=== PATIENT | female | born 1965 | race Two or more races ===

== ENCOUNTER 2017-02-03 11:25 | Emergency (ER) | payer BC, OTHER ==
--- NOTE | 2017-02-03 11:47 | ER Document Report ---
ED Medical Screen (RME) - General Chief Complaint: Weakness Stated Complaint: LEFT SIDE WEAKNESS Time Seen by Provider: 02/03/17 11:42 Mode of Arrival: Ambulatory Information source: Patient Notes: 51-year-old diabetic female presents with complaints of left-sided sudden weakness arms legs with slurred speech lasting approximately 15 minutes prior to arrival. Patient denies any previous similar episodes I have greeted and performed a rapid initial assessment of this patient. A comprehensive ED assessment and evaluation of the patient, analysis of test results and completion of the medical decision making process will be conducted by additional ED providers. PHYSICAL EXAMINATION: GENERAL: Well-appearing, well-nourished and in no acute distress. HEAD: Atraumatic, normocephalic. EYES: Pupils equal round extraocular movements intact, conjunctiva are normal. ENT: Nares patent NECK: Normal range of motion LUNGS: No respiratory distress Musculoskeletal: Normal range of motion NEUROLOGICAL: Normal speech, normal gait. PSYCH: Normal mood, normal affect. SKIN: Warm, Dry, normal turgor, no rashes or lesions noted. TRAVEL OUTSIDE OF THE [place] IN LAST 30 DAYS: No - Related Data Allergies/Adverse Reactions: codeine Allergy (Verified 02/03/17 11:34) latex Allergy (Verified 02/03/17 11:34) Past Medical History Renal/ Medical History: Denies: Hx Peritoneal Dialysis Physical Exam - Vital signs Vitals: Temp Pulse Resp BP Pulse Ox 98.4 F 93 18 156/81 H 98 02/03/17 11:33 02/03/17 11:33 02/03/17 11:33 02/03/17 11:33 02/03/17 11:33 Course - Vital Signs Vital signs: Temp Pulse Resp BP Pulse Ox 98.4 F 93 18 156/81 H 98 02/03/17 11:33 02/03/17 11:33 02/03/17 11:33 02/03/17 11:33 02/03/17 11:33
--- NOTE | 2017-02-03 12:25 | RADIOLOGY REPORT (SQ) ---
EXAM DESCRIPTION: CHEST SINGLE VIEW COMPLETED DATE/TIME: 02/03/2017 12:15 pm REASON FOR STUDY: sudden left sided weakness with reslution COMPARISON: Chest film 01/19/2007 CT angio chest 01/19/2007 EXAM PARAMETERS: NUMBER OF VIEWS: One view. TECHNIQUE: Single frontal radiographic view of the chest acquired. RADIATION DOSE: NA LIMITATIONS: None. FINDINGS: LUNGS AND PLEURA: No opacities, masses or pneumothorax. No pleural effusion. MEDIASTINUM AND HILAR STRUCTURES: No masses. Contour normal. HEART AND VASCULAR STRUCTURES: Heart normal in size. Normal vasculature. BONES: No acute findings. HARDWARE: None in the chest. OTHER: No other significant finding. IMPRESSION: NO ACUTE RADIOGRAPHIC FINDING IN THE CHEST. TECHNICAL DOCUMENTATION: JOB ID: [id number]
--- NOTE | 2017-02-03 12:27 | RADIOLOGY REPORT (SQ) ---
EXAM DESCRIPTION: CT HEAD WITHOUT COMPLETED DATE/TIME: 02/03/2017 12:17 pm REASON FOR STUDY: sudden left sided weakness with reslution COMPARISON: None. TECHNIQUE: Axial images acquired through the brain without intravenous contrast. Images reviewed wi th bone, brain and subdural windows. Images stored on PACS. All CT scanners at this facility use dose modulation, iterative reconstruction, and/or weight based d osing when appropriate to reduce radiation dose to as low as reasonably achievable (ALARA). [facility]: Dose Right [facility]: CareDose [facility]: Dose Right [facility]: Teradose 4D [facility]: Smart WalkSource RADIATION DOSE: Up-to-date CT equipment and radiation dose reduction techniques were employed. CTDIv ol: 49.0 mGy. DLP: 783 mGy-cm. mGy. LIMITATIONS: None. FINDINGS: VENTRICLES: Normal size and contour. CEREBRUM: No masses. No hemorrhage. No midline shift. No evidence for acute infarction. Normal gra y/white matter differentiation. No areas of low density in the white matter. CEREBELLUM: No masses. No hemorrhage. No alteration of density. No evidence for acute infarction. EXTRAAXIAL SPACES: No fluid collections. No masses. ORBITS AND GLOBE: No intra- or extraconal masses. Normal contour of globe without masses. CALVARIUM: No fracture. PARANASAL SINUSES: No fluid or mucosal thickening. SOFT TISSUES: No mass or hematoma. OTHER: No other significant finding. IMPRESSION: NORMAL BRAIN CT WITHOUT CONTRAST. EVIDENCE OF ACUTE STROKE: NO. COMMENT: Pertinent findings on the imaging study reported as a CRITICAL RESULT to Dr. Chavira at 12:19 on 02/03/2017. Category of Critical Result: CT code stroke Quality ID # [id number]: Final reports with documentation of one or more dose reduction techniques (e.g., Au tomated exposure control, adjustment of the mA and/or kV according to patient size, use of iterative reconstruction technique) TECHNICAL DOCUMENTATION: JOB ID: [id number] [employer]- All Rights Reserved
[2017-02-03 12:43] LABS: PROTHROMBIN TIME 11.8 SEC (11.4-15.4)
[2017-02-03 12:44] LABS: PARTIAL THROMBOPLASTIN TIME 31.7 SEC (23.5-35.8)
[2017-02-03 12:45] LABS: ABSOLUTE EOSINOPHILS # (AUTO) 0.1 10^3/uL (0.0-0.6); ABSOLUTE LYMPHOCYTES (AUTO) 1.6 10^3/uL (0.5-4.7); ABSOLUTE MONOCYTES (AUTO) 0.3 10^3/uL (0.1-1.4); ABSOLUTE NEUT (AUTO) 5.1 10^3/uL (1.7-8.2); BASOPHILS % (AUTO) 0.6 % (0-2); EOSINOPHILS % (AUTO) 1.7 % (0-6); HEMATOCRIT 38.1 % (36.0-47.0); HGB HCT DIFFERENCE 0.9; LYMPHOCYTES % (AUTO) 22.3 % (13-45); MEAN CORPUSCULAR HEMOGLOBIN 29.7 pg (27.0-33.4); MEAN CORPUSCULAR HGB CONC 34.2 g/dL (32.0-36.0); MEAN CORPUSCULAR VOLUME 87 fl (80-97); MONOCYTES % (AUTO) 4.4 % (3-13); RED BLOOD COUNT 4.38 10^6/uL (3.72-5.28); RED CELL DISTRIBUTION WIDTH 12.8 % (11.5-14.0); WHITE BLOOD COUNT 7.2 10^3/uL (4.0-10.5)
[2017-02-03 12:59] LABS: ALANINE AMINOTRANSFERASE 53 U/L (9-52); ALBUMIN 4.6 g/dL (3.5-5.0); ALKALINE PHOSPHATASE 69 U/L (38-126); ANION GAP 16 (5-19); ASPARTATE AMINO TRANSFERASE 40 U/L (14-36); BILIRUBIN,DIRECT 0.4 mg/dL (0.0-0.4); BILIRUBIN,TOTAL 0.6 mg/dL (0.2-1.3); BLOOD UREA NITROGEN 10 mg/dL (7-20); CALCIUM 10.2 mg/dL (8.4-10.2); CARBON DIOXIDE 22 mmol/L (22-30); CHLORIDE 103 mmol/L (98-107); CREATINE KINASE 71 U/L (30-135); CREATININE RESULT 0.57 mg/dL (0.52-1.25); GLUCOSE 217 mg/dL (75-110); POTASSIUM 4.5 mmol/L (3.6-5.0); SODIUM 140.8 mmol/L (137-145)
[2017-02-03 13:11] LABS: CREATINE KINASE MB 0.43 ng/mL (<4.55)
[2017-02-03 13:14] LABS: TROPONIN I < 0.012 ng/mL
--- NOTE | 2017-02-03 14:35 | ER Document Report ---
ED Dizziness/Weakness - General Chief Complaint: Weakness Stated Complaint: LEFT SIDE WEAKNESS Time Seen by Provider: 02/03/17 11:42 Mode of Arrival: Ambulatory Information source: Patient TRAVEL OUTSIDE OF THE [place] IN LAST 30 DAYS: No - HPI Patient complains to provider of: Weakness Onset: This morning Onset/Duration: Sudden Quality of pain: No pain Severity: Moderate - WAS STILL ABLE TO WALK & DRESS SELF Associated symptoms: Confused - SLIGHTLY (THIS HAS HAPPENED BEFORE, IS RATHER COMMON, SHE SAYS), Loss of strength. denies: Nausea, Vertigo Baseline gait: Walks w/o assistance - Related Data Allergies/Adverse Reactions: codeine Allergy (Verified 02/03/17 11:34) latex Allergy (Verified 02/03/17 11:34) Past Medical History - General Information source: Patient - Social History Smoking Status: Never Smoker Chew tobacco use (# tins/day): No Frequency of alcohol use: None Drug Abuse: None Lives with: Family Family History: Reviewed & Not Pertinent Patient has suicidal ideation: No Patient has homicidal ideation: No - Past Medical History Cardiac Medical History: Reports: None Pulmonary Medical History: Reports: None EENT Medical History: Reports: None Neurological Medical History: Reports: Other - NEUROPATHY, MILD.. Denies: Hx Cerebrovascular Accident, Hx Migraine, Hx Seizures Endocrine Medical History: Reports: Hx Diabetes Mellitus Type 2 Renal/ Medical History: Reports: None. Denies: Hx Peritoneal Dialysis Malignancy Medical History: Reports: Hx Breast Cancer - LUMPECTOMY, RADIATION Tx Musculoskeltal Medical History: Reports None Psychiatric Medical History: Reports: None Past Surgical History: Reports: Hx Lumpectomy Review of Systems - Review of Systems Constitutional: See HPI EENT: No symptoms reported Cardiovascular: No symptoms reported Respiratory: No symptoms reported Gastrointestinal: No symptoms reported Genitourinary: No symptoms reported Female Genitourinary: No symptoms reported Musculoskeletal: See HPI Skin: No symptoms reported Neurological/Psychological: See HPI Physical Exam - Vital signs Vitals: Temp Pulse Resp BP Pulse Ox 98.4 F 93 18 156/81 H 98 02/03/17 11:33 02/03/17 11:33 02/03/17 11:33 02/03/17 11:33 02/03/17 11:33 Interpretation: Normal - General General appearance: Appears well, Alert In distress: None - HEENT Head: Normocephalic Eyes: Normal Conjunctiva: Normal Ears: Normal External canal: Normal Tympanic membrane: Normal Nasal: Normal Mouth/Lips: Normal Mucous membranes: Normal Pharynx: Normal Neck: Normal, Supple - Respiratory Respiratory status: No respiratory distress Breath sounds: Normal - Cardiovascular Rhythm: Regular Heart sounds: Normal auscultation Murmur: No - Abdominal Inspection: Normal Distension: No distension Bowel sounds: Normal - Back Back: Normal - Extremities General upper extremity: Normal inspection General lower extremity: No: Normal inspection - L. FOOT (SEE BELOW) Foot: Other - SMALL VENOUS VARICOSITY ON DORSUM, 2mm DIAMETER, NO THROMBUS - Neurological Neuro grossly intact: Yes Cognition: Normal Orientation: AAOx4 Fifi Coma Scale Eye Opening: Spontaneous Fifi Coma Scale Verbal: Oriented Fifi Coma Scale Motor: Obeys Commands Fifi Coma Scale Total: 15 Speech: Normal Cranial nerves: Normal. No: Facial palsy, Gaze palsy, Tongue deviation Cerebellar coordination: Normal Additional motor exam normals: Equal uniform designer Sensory: Normal - Psychological Associated symptoms: Normal affect, Normal mood - Skin Skin Temperature: Warm Skin Moisture: Dry Skin Color: Normal Skin Turgor: Elastic Course - Vital Signs Vital signs: Temp Pulse Resp BP Pulse Ox 98.4 F 90 18 132/99 H 99 02/03/17 11:33 02/03/17 12:41 02/03/17 13:01 02/03/17 13:01 02/03/17 13:01 - Laboratory Result Diagrams: 02/03/17 12:28 02/03/17 12:28 Laboratory results interpreted by me: 02/03/17 12:28 Glucose 217 H AST 40 H ALT 53 H Discharge - Discharge Clinical Impression: Weakness of left side of body, Superficial varicosities Diabetes mellitus type II, controlled Qualifiers: Diabetes mellitus complication status: with neurologic complications Diabetes mellitus complication detail: with unspecified neuropathy Diabetes mellitus director long term care insulin use: without skilled nursing use Qualified Code(s): E11.40 - Type 2 diabetes mellitus with diabetic neuropathy, unspecified Condition: Stable Disposition: HOME, SELF-CARE Instructions: Neuropathy ([facility]), Weakness ([facility]) Additional Instructions: CONTINUE PRESENT MEDS AND DIABETIC DIET. FOLLOW UP WITH YOUR PRIMARY CARE PROVIDER, CALL SUNDAY FOR APPOINTMENT. RETURN TO E.R. IF YOU GET WORSE, ANY TIME. Referrals: ELHAM PIERRE PA-C [Primary Care Provider] - Follow up in 3-5 days
[2017-02-03 15:25] VITALS: BP 144/83
--- NOTE | 2017-02-03 17:00 | EKG REPORT ---
SEVERITY:- NORMAL ECG - SINUS RHYTHM : Confirmed by: Roni Edgar MD 03-Feb-2017 17:00:00
== END 2017-02-03 15:25 | disposition home or self-care (01) ==
LOC: ER 11:25
DX: E11.40 Type 2 diabetes mellitus with diabetic neuropathy, unspecified (principal); I83.92 Asymptomatic varicose veins of left lower extremity; R53.1 Weakness
CPT/HCPCS: 36415; 70450; 71010; 80053; 82550; 82553; 84484; 85025; 85610; 85730; 93005; 93010; 99285

== ENCOUNTER 2017-05-12 00:17 | Emergency (ER) | payer BC ==
--- NOTE | 2017-05-12 00:49 | RADIOLOGY REPORT (SQ) ---
EXAM DESCRIPTION: CT HEAD WITHOUT CLINICAL HISTORY: Stroke like sx COMPARISON: 02/03/2017 TECHNIQUE: Axial CT of the head obtained from the skull apex to the skull base without contrast. FINDINGS: No acute intracranial hemorrhage identified. No mass, mass effect, shift of the midline, abnormal extra-axial fluid collection or CT evidence of acute ischemic change identified. The ventricular system is unremarkable. No acute abnormalities of the supratentorial white matter, basal ganglia, cerebellum, or brainstem. The visualized paranasal sinuses and the mastoid air cells are well aerated. No skull fracture identified. Visualized orbits and globes are unremarkable. DLP: 1162.97 mGy-cm IMPRESSION: 1. No acute intracranial abnormality identified. This exam was performed according to our departmental dose-optimization program, which includes automated exposure control, adjustment of the mA and/or kV according to patient size and/or use of iterative reconstruction technique.
[2017-05-12] MEDS ORDERED: NORMAL SALINE 1000 ML 1,000 ML IV ONE (00:52)
[2017-05-12] MEDS ORDERED: HALOPERIDOL LACTATE INJ 5 MG/1 ML VIAL IV ONE (00:52)
--- NOTE | 2017-05-12 03:19 | ER Document Report ---
ED General - General Chief Complaint: Numbness Stated Complaint: STROKE LIKE SYMPTOMS Time Seen by Provider: 05/12/17 00:51 Notes: Patient is a 51-year-old female with past medical history of non-insulin- dependent diabetes who presents with concerns of body heaviness and numbness over her entire body from her neck down worse on the left side but present on both sides. She states that the symptoms are intermittent. Symptoms started earlier today and have occurred on several occasions since that time. Nothing improves or worsens her symptoms. She denies a history of similar symptoms in the past although states that she was seen in the emergency department several months ago for left-sided numbness. She is scheduled to follow-up with a neurologist after being referred by her PERSONNEL CLERKS SUPERVISOR regarding some of these complaints. She states that she is "very stressed out" currently and thinks this may have something to do her symptoms. She also reports that she has had a dull, aching headache today. Nothing improves or worsens her symptoms. She denies any prior history of strokes, seizures, demyelinating conditions, or cardiac history. She denies any fever, neck pain, altered mental status, or focal weakness. No difficulty with ambulation. TRAVEL OUTSIDE OF THE [place] IN LAST 30 DAYS: No - Related Data Allergies/Adverse Reactions: codeine Allergy (Verified 02/03/17 11:34) latex Allergy (Verified 02/03/17 11:34) Past Medical History - General Information source: Patient - Social History Smoking Status: Never Smoker Frequency of alcohol use: None Drug Abuse: None Lives with: Family Family History: Reviewed & Not Pertinent Patient has suicidal ideation: No Patient has homicidal ideation: No Neurological Medical History: Denies: Hx Cerebrovascular Accident, Hx Migraine, Hx Seizures Endocrine Medical History: Reports: Hx Diabetes Mellitus Type 2 Renal/ Medical History: Denies: Hx Peritoneal Dialysis Malignancy Medical History: Reports: Hx Breast Cancer - LUMPECTOMY, RADIATION Tx Past Surgical History: Reports: Hx Breast Surgery - lumpectomy R breast, Hx Hysterectomy, Hx Lumpectomy Review of Systems - Review of Systems Notes: Constitutional: Negative for fever. HENT: Negative for sore throat. Eyes: Negative for visual changes. Cardiovascular: Negative for chest pain. Respiratory: Negative for shortness of breath. Gastrointestinal: Negative for abdominal pain, vomiting or diarrhea. Genitourinary: Negative for dysuria. Musculoskeletal: Negative for back pain. Skin: Negative for rash. Neurological: Positive for total body numbness from the neck down 10 point ROS negative except as marked above and in HPI. Physical Exam - Vital signs Vitals: Pulse Resp BP Pulse Ox 108 H 17 148/89 H 97 05/12/17 00:23 05/12/17 00:23 05/12/17 00:23 05/12/17 00:23 Interpretation: Tachycardic Notes: PHYSICAL EXAMINATION: GENERAL: Well-appearing, well-nourished and in no acute distress. HEAD: Atraumatic, normocephalic. EYES: Pupils equal round and reactive to light, extraocular movements intact, sclera anicteric, conjunctiva are normal. ENT: nares patent, oropharynx clear without exudates. Moist mucous membranes. NECK: Normal range of motion, supple without lymphadenopathy LUNGS: Breath sounds clear to auscultation bilaterally and equal. No wheezes rales or rhonchi. HEART: Regular rate and rhythm without murmurs ABDOMEN: Soft, nontender, normoactive bowel sounds. No guarding, no rebound. No masses appreciated. EXTREMITIES: Normal range of motion, no pitting or edema. No cyanosis. NEUROLOGICAL: Face symmetric. Tongue protrudes midline. Extraocular motions intact. Pupils are 2 mm and equally reactive. Normal speech, normal gait. 5 out of 5 strength in both the distal and proximal upper and lower extremities bilaterally. Sensation is grossly intact throughout. Finger to nose testing normal. Pronator drift normal. PSYCH: Seems moderately anxious SKIN: Warm, Dry, normal turgor, no rashes or lesions noted. Course - Re-evaluation Re-evalutation: 05/12/17 03:14 Patient presents with multiple vague complaints that did not appear to be concerning for any acute life-threatening pathology. Vitals are within normal limits at triage and at time of discharge. Physical examination is unremarkable. Patient has tolerated oral intake without difficulty. Patient was not noted to be in distress at any point during their ER visit. At this time, based on the reassuring evaluation, I do not suspect an acute OK, pulmonary embolus, aortic dissection, acute intra-abdominal pathology, stroke, or sepsis. Patient reported that she felt that she was having stroke-like symptoms that she had "heaviness and numbness" over her entire body from her neck down and feeling like she could not swallow. Patient was noted to be in no distress whatsoever, swallowing without difficulty. A full stroke screen is negative. I suspect that some of patient's symptoms may be psychogenic in origin and have encouraged her to follow-up with neurology as an outpatient for further evaluation. Will discharge with return precautions and follow-up recommendations. Verbal discharge instructions given a the bedside and opportunity for questions given. Medication warnings reviewed. Patient is in agreement with this plan and has verbalized understanding of return precautions and the need for primary care follow-up in the next 24-72 hours. - Vital Signs Vital signs: Temp Pulse Resp BP Pulse Ox 97.3 F 108 H 15 137/70 H 98 05/12/17 02:11 05/12/17 00:27 05/12/17 02:11 05/12/17 02:11 05/12/17 02:11 - Diagnostic Test Radiology reviewed: Image reviewed, Reports reviewed Radiology results interpreted by me: 05/12/17 03:15 CT head: No acute intracranial bleed Discharge - Discharge Clinical Impression: Dysphasia, Numbness Condition: Good Disposition: HOME, SELF-CARE Additional Instructions: Please return to the emergency room immediately if you experience any concerning symptoms including high fevers, severe headache, chest pain, difficulty breathing, abdominal pain, slurred speech, numbness or weakness in your arms or legs, or any other symptom that concerns you. Please follow-up with your scheduled neurology appointment. Return for any additional concerns you may have. Referrals: HERNAN WOODY MD [ACTIVE STAFF] - Follow up as needed
[2017-05-12 03:26] VITALS: BP 138/75
--- NOTE | 2017-05-12 12:16 | EKG REPORT ---
SEVERITY:- NORMAL ECG - SINUS RHYTHM : Confirmed by: Payal Etienne MD 12-May-2017 12:15:28
== END 2017-05-12 03:37 | disposition home or self-care (01) ==
LOC: ER 00:17
DX: R20.0 Anesthesia of skin (principal); R47.02 Dysphasia; R51 Headache; R00.0 Tachycardia, unspecified; E11.9 Type 2 diabetes mellitus without complications; Z88.5 Allergy status to narcotic agent; Z91.040 Latex allergy status; Z85.3 Personal history of malignant neoplasm of breast; Z92.3 Personal history of irradiation
CPT/HCPCS: 93005; 99284; 96361; 96374; 70450; 93010; J1630; J7030

== ENCOUNTER 2017-05-21 22:41 | Emergency (ER) | payer BC ==
--- NOTE | 2017-05-21 23:55 | ER Document Report ---
ED General - General Chief Complaint: Neck Pain < 24hrs old Stated Complaint: NECK PAIN Time Seen by Provider: 05/21/17 23:39 Notes: Patient is a 51-year-old female that comes emergency department for chief complaint of pain in the left side of her neck, she also states that her blood sugar felt like it was dropping so she took glucose pills, she felt like her blood pressure then elevated, she then had several episodes of diarrhea and urinated a few times. She denies chest pain, shortness of breath, she states that other than pain in the left side of her neck she feels fine. She states she has had this left sided neck pain intermittently for a few months. She denies injury, fever, headache. Past medical history of 2 diabetes, on metformin, denies smoking, denies any other medications, denies cardiac history. She has had a hysterectomy. TRAVEL OUTSIDE OF THE [place] IN LAST 30 DAYS: No - Related Data Allergies/Adverse Reactions: codeine Allergy (Verified 02/03/17 11:34) latex Allergy (Verified 02/03/17 11:34) Past Medical History - General Information source: Patient - Social History Smoking Status: Never Smoker Frequency of alcohol use: None Drug Abuse: None Lives with: Family Family History: Reviewed & Not Pertinent - Medical History Medical History: Negative Neurological Medical History: Denies: Hx Cerebrovascular Accident, Hx Migraine, Hx Seizures Endocrine Medical History: Reports: Hx Diabetes Mellitus Type 2 Renal/ Medical History: Denies: Hx Peritoneal Dialysis Malignancy Medical History: Reports: Hx Breast Cancer - LUMPECTOMY, RADIATION Tx Past Surgical History: Reports: Hx Breast Surgery - lumpectomy R breast, Hx Hysterectomy, Hx Lumpectomy Review of Systems - Review of Systems Constitutional: No symptoms reported EENT: See HPI Cardiovascular: See HPI Respiratory: No symptoms reported Gastrointestinal: No symptoms reported Genitourinary: No symptoms reported Female Genitourinary: No symptoms reported Musculoskeletal: See HPI Skin: No symptoms reported Hematologic/Lymphatic: No symptoms reported Neurological/Psychological: No symptoms reported Physical Exam - Vital signs Vitals: Temp Pulse Resp BP Pulse Ox 97.7 F 121 H 18 148/82 H 98 05/21/17 22:59 05/21/17 22:59 05/21/17 22:59 05/21/17 22:59 05/21/17 22:59 Interpretation: Normal - General General appearance: Alert, Anxious - Patient wide-eyed, talking rapidly In distress: None - HEENT Head: Normocephalic, Atraumatic Eyes: Normal Conjunctiva: Normal Extraocular movements intact: Yes Eyelashes: Normal Pupils: PERRL Mouth/Lips: Normal Mucous membranes: Normal Pharynx: Normal Neck: Other - There is a specific area of tenderness over the left anterior cervical chain consistent with a small lymph node, no induration, fluctuance, erythema, normal range of motion of the neck, no nuchal rigidity. - Respiratory Respiratory status: No respiratory distress Chest status: Nontender Breath sounds: Normal. No: Decreased air movement, Wheezing Chest palpation: Normal - Cardiovascular Rhythm: Regular, Extrasystoles, Tachycardia Heart sounds: Normal auscultation, S1 appreciated, S2 appreciated Murmur: No - Abdominal Inspection: Normal Distension: No distension Bowel sounds: Normal Tenderness: Nontender. No: Tender, Guarding - Back Back: Normal, Nontender. No: Tender - Extremities General upper extremity: Normal inspection, Nontender, Normal color, Normal ROM , Normal temperature General lower extremity: Normal inspection, Nontender, Normal color, Normal ROM , Normal temperature, Normal weight bearing. No: Vandana's sign - Neurological Neuro grossly intact: Yes Cognition: Normal Orientation: AAOx4 Fifi Coma Scale Eye Opening: Spontaneous Fifi Coma Scale Verbal: Oriented Fifi Coma Scale Motor: Obeys Commands Fifi Coma Scale Total: 15 Speech: Normal Motor strength normal: LUE, RUE, LLE, RLE Sensory: Normal - Psychological Associated symptoms: Normal affect, Normal mood - Skin Skin Temperature: Warm Skin Moisture: Dry Skin Color: Normal Course - Re-evaluation Re-evalutation: Patient initially appeared anxious, talking about a variety of things instead of just her symptoms. Eventually she became more calm. She has a small area of tenderness in her left anterior cervical chain, she does not have any decreased range of motion, no nuchal rigidity, no fever, no headache. She has poor dentition and she admits that she gets frequent dental infections and is having dental procedures. I suspect this is a lymph node that is swollen secondary to this. Does not appear to be ACS symptom, she has no other symptoms suggesting ACS, her EKG does not show any ischemic changes, troponin is not elevated, chest x-ray unremarkable, CBC, chemistry unremarkable. Patient is having extra beats along with her sinus rhythm although these are not PVCs. Appears to be sinus arrhythmia. Magnesium is slightly low, offered to supplement, offered to give IV fluids, patient declined both. She was orally rehydrating in the room. No evidence of acidosis. Patient is asking for anti-inflammatories along with magnesium and is asking to leave. She does agree to follow-up closely with her primary care for additional monitoring, I discussed this in detail, I discussed return precautions, patient states gratefulness and understanding. - Vital Signs Vital signs: Temp Pulse Resp BP Pulse Ox 98.3 F 84 16 147/84 H 98 05/22/17 03:00 05/22/17 03:00 05/22/17 03:00 05/22/17 03:00 05/22/17 03:00 - Laboratory Result Diagrams: 05/22/17 00:05 05/22/17 00:05 Laboratory results interpreted by me: 05/22/17 05/22/17 05/22/17 00:05 00:05 00:05 WBC 10.6 H Seg Neutrophils % 81.8 H Absolute Neutrophils 8.7 H Glucose 219 H Calcium 10.9 H Magnesium 1.4 L ALT 56 H Albumin 5.3 H Urine Glucose (UA) Urine Ketones 05/22/17 01:20 WBC Seg Neutrophils % Absolute Neutrophils Glucose Calcium Magnesium ALT Albumin Urine Glucose (UA) 50 H Urine Ketones TRACE H Discharge - Discharge Clinical Impression: Palpitations, Neck pain Condition: Stable Disposition: HOME, SELF-CARE Additional Instructions: Your workup shows low magnesium but otherwise shows no concerning findings. Your monitoring shows extra beats consistent with your sensation of palpitations , I recommend taking the magnesium supplement as prescribed, perform a close follow-up with your provider for additional treatment, monitoring, and potential cardiac referral. Your neck exam is suggestive of a swollen lymph node, probably related to your dental condition. This is not certain or specific. This should resolve with time. Follow-up with your dentist for additional management to reduce painful symptoms in the lymph node. Return if you develop any concerning symptoms including shortness of breath, chest pain, passing out, fever, or any other concerning symptoms. Prescriptions: Ibuprofen [Motrin 600 mg Tablet] 600 mg PO Q6HP PRN #24 tablet PRN Reason: Magnesium Oxide 250 mg PO DAILY #30 tablet Referrals: ELHAM PIERRE PA-C [Primary Care Provider] - Follow up in 3-5 days
[2017-05-22 00:19] LABS: ABSOLUTE EOSINOPHILS # (AUTO) 0.1 10^3/uL (0.0-0.6); ABSOLUTE LYMPHOCYTES (AUTO) 1.5 10^3/uL (0.5-4.7); ABSOLUTE MONOCYTES (AUTO) 0.3 10^3/uL (0.1-1.4); ABSOLUTE NEUT (AUTO) 8.7 10^3/uL (1.7-8.2); BASOPHILS % (AUTO) 0.4 % (0-2); EOSINOPHILS % (AUTO) 0.8 % (0-6); HEMOGLOBIN 13.6 g/dL (12.0-15.5); LYMPHOCYTES % (AUTO) 13.9 % (13-45); MEAN CORPUSCULAR HEMOGLOBIN 29.5 pg (27.0-33.4); MEAN CORPUSCULAR HGB CONC 33.9 g/dL (32.0-36.0); MEAN CORPUSCULAR VOLUME 87 fl (80-97); MONOCYTES % (AUTO) 3.1 % (3-13); PLATELET COUNT 279 10^3/uL (150-450); RED CELL DISTRIBUTION WIDTH 12.6 % (11.5-14.0); SEGMENTED NEUTROPHILS % (AUTO) 81.8 % (42-78); TOTAL CELLS COUNTED % (AUTO) 100 %; WHITE BLOOD COUNT 10.6 10^3/uL (4.0-10.5)
[2017-05-22 00:35] LABS: ALANINE AMINOTRANSFERASE 56 U/L (9-52); ALBUMIN 5.3 g/dL (3.5-5.0); ALKALINE PHOSPHATASE 88 U/L (38-126); ANION GAP 17 (5-19); ASPARTATE AMINO TRANSFERASE 32 U/L (14-36); BILIRUBIN,DIRECT 0.2 mg/dL (0.0-0.4); BILIRUBIN,TOTAL 0.3 mg/dL (0.2-1.3); BLOOD UREA NITROGEN 17 mg/dL (7-20); CALCIUM 10.9 mg/dL (8.4-10.2); CARBON DIOXIDE 23 mmol/L (22-30); CHLORIDE 99 mmol/L (98-107); CREATINE KINASE 70 U/L (30-135); GLUCOSE 219 mg/dL (75-110); POTASSIUM 4.5 mmol/L (3.6-5.0); SODIUM 138.7 mmol/L (137-145); TOTAL PROTEIN 7.7 g/dL (6.3-8.2)
[2017-05-22 02:01] LABS: APPEARANCE,URINE CLEAR; BILIRUBIN,URINE NEGATIVE (NEGATIVE); COLOR,URINE COLORLESS; GLUCOSE, URINE 50 mg/dL (NEGATIVE); KETONES,URINE TRACE mg/dL (NEGATIVE); LEUKOCYTE ESTERASE,URINE NEGATIVE (NEGATIVE); NITRITE,URINE NEGATIVE (NEGATIVE); PROTEIN,URINE NEGATIVE (NEGATIVE); URINE SPECIFIC GRAVITY 1.004; UROBILINOGEN,URINE NEGATIVE mg/dL (<2.0)
[2017-05-22] MEDS ORDERED: ACETAMINOPHEN 325 MG TABLET PO ONE (02:43)
[2017-05-22 03:39] VITALS: BP 147/84
--- NOTE | 2017-05-22 06:39 | EKG REPORT ---
SEVERITY:- OTHERWISE NORMAL ECG - SINUS TACHYCARDIA : Confirmed by: Roni Edgar MD 22-May-2017 06:38:43
--- NOTE | 2017-05-22 08:15 | RADIOLOGY REPORT (SQ) ---
EXAM DESCRIPTION: CHEST SINGLE VIEW COMPLETED DATE/TIME: 05/22/2017 12:16 am REASON FOR STUDY: left sided neck pain, rule out ACS COMPARISON: AP chest 02/03/2017 EXAM PARAMETERS: NUMBER OF VIEWS: One view. TECHNIQUE: Single frontal radiographic view of the chest acquired. RADIATION DOSE: NA LIMITATIONS: None. FINDINGS: LUNGS AND PLEURA: No opacities, masses or pneumothorax. No pleural effusion. MEDIASTINUM AND HILAR STRUCTURES: No masses. Contour normal. HEART AND VASCULAR STRUCTURES: Heart normal in size. Normal vasculature. BONES: No acute findings. HARDWARE: None in the chest. OTHER: No other significant finding. IMPRESSION: NO ACUTE RADIOGRAPHIC FINDING IN THE CHEST. TECHNICAL DOCUMENTATION: JOB ID: [id number] [employer]- All Rights Reserved
== END 2017-05-22 03:10 | disposition home or self-care (01) ==
LOC: ER 22:41
DX: M54.2 Cervicalgia (principal); R00.2 Palpitations; Z88.6 Allergy status to analgesic agent; Z91.040 Latex allergy status; E11.9 Type 2 diabetes mellitus without complications; Z79.84 Long term (current) use of oral hypoglycemic drugs; Z90.710 Acquired absence of both cervix and uterus
CPT/HCPCS: 36415; 71045; 80053; 81001; 82550; 83735; 84443; 84484; 85025; 93005; 93010; 99284

== ENCOUNTER 2019-03-15 12:06 | Emergency (ER) | payer BC ==
--- NOTE | 2019-03-15 12:28 | ER Document Report ---
ED Medical Screen (RME) - General Mode of Arrival: Ambulatory Information source: Patient TRAVEL OUTSIDE OF THE [place] IN LAST 30 DAYS: No <AVINASH JEREZ - Last Filed: 03/15/19 12:24> <ADRIANA CALHOUN - Last Filed: 03/15/19 17:15> - General Chief Complaint: Dizziness Stated Complaint: DIZZINESS Time Seen by Provider: 03/15/19 12:24 Primary Care Provider: ELHAM PIERRE PA-C [NO LOCAL MD] - Follow up as needed Notes: 53-year-old female presented to ED for complaint of dizziness since Sunday night . She states she went to well over and she got dizzy Sunday night. She states is been coming and going since then. She states is worse if she rolls to her left and when she rolls to her right. She states that had been only bothering her in the bed when she was trying to sleep but yesterday it started all day and she is having pain in the left side of her neck but she thinks that could be from stress. He states she took some meclizine last night at 1130. She states the meclizine made it much worse. She has had something similar but it was so mild that she does not even realize it was the same. She states she thought it might be low blood sugars she states she does have diabetes but does not use insulin. She states she is on metformin and a new medication that she has not picked up yet. I have greeted and performed a rapid initial assessment of this patient. A comprehensive ED assessment and evaluation of the patient, analysis of test results and completion of medical decision making process will be conducted by an additional ED providers. (AVINASH JEREZ) - Related Data Allergies/Adverse Reactions: codeine Allergy (Verified 03/15/19 12:22) latex Allergy (Verified 03/15/19 12:22) Past Medical History Neurological Medical History: Denies: Hx Cerebrovascular Accident, Hx Migraine, Hx Seizures Endocrine Medical History: Reports: Hx Diabetes Mellitus Type 2 Renal/ Medical History: Denies: Hx Peritoneal Dialysis Malignancy Medical History: Reports: Hx Breast Cancer - LUMPECTOMY, RADIATION Tx Past Surgical History: Reports: Hx Breast Surgery - lumpectomy R breast, Hx Hysterectomy, Hx Lumpectomy <AVINASH JEREZ - Last Filed: 03/15/19 12:24> Physical Exam - Vital signs Vitals: Temp Pulse Resp BP Pulse Ox 98.1 F 102 H 18 184/85 H 100 03/15/19 12:08 03/15/19 12:08 03/15/19 12:08 03/15/19 12:08 03/15/19 12:08 Course - Laboratory Result Diagrams: 03/15/19 13:00 03/15/19 13:00 <ADRIANA CALHOUN - Last Filed: 03/15/19 17:15> - Vital Signs Vital signs: Temp Pulse Resp BP Pulse Ox 98.1 F 102 H 18 184/85 H 100 03/15/19 12:08 03/15/19 12:08 03/15/19 12:08 03/15/19 12:08 03/15/19 12:08 - Laboratory Laboratory results interpreted by me: 03/15/19 03/15/19 12:39 13:00 Glucose 144 H Urine Glucose (UA) 50 H Ur Leukocyte Esterase SMALL H Doctor's Discharge <AVINASH JEREZ - Last Filed: 03/15/19 12:24> <ADRIANA CALHOUN - Last Filed: 03/15/19 17:15> - Discharge Clinical Impression: Peripheral vertigo Qualifiers: Laterality: right Qualified Code(s): H81.391 - Other peripheral vertigo, right ear Condition: Good Disposition: HOME, SELF-CARE Instructions: Meclizine ([facility]), Vertigo ([facility]) Prescriptions: Meclizine HCl [Antivert 25 mg Tablet] 25 mg PO TID PRN 7 Days #21 tablet PRN Reason: As needed for vertigo Referrals: ELHAM PIERRE PA-C [NO LOCAL MD] - Follow up as needed
[2019-03-15 13:18] LABS: ABSOLUTE EOSINOPHILS # (AUTO) 0.1 10^3/uL (0.0-0.6); ABSOLUTE LYMPHOCYTES (AUTO) 1.9 10^3/uL (0.5-4.7); ABSOLUTE MONOCYTES (AUTO) 0.4 10^3/uL (0.1-1.4); ABSOLUTE NEUT (AUTO) 4.7 10^3/uL (1.7-8.2); BASOPHILS % (AUTO) 0.5 % (0-2); EOSINOPHILS % (AUTO) 1.2 % (0-6); HEMATOCRIT 40.9 % (36.0-47.0); HEMOGLOBIN 14.3 g/dL (12.0-15.5); MEAN CORPUSCULAR HEMOGLOBIN 30.6 pg (27.0-33.4); MEAN CORPUSCULAR VOLUME 87 fl (80-97); MONOCYTES % (AUTO) 5.7 % (3-13); PLATELET COUNT 264 10^3/uL (150-450); RED BLOOD COUNT 4.68 10^6/uL (3.72-5.28); RED CELL DISTRIBUTION WIDTH 12.8 % (11.5-14.0); SEGMENTED NEUTROPHILS % (AUTO) 65.6 % (42-78); TOTAL CELLS COUNTED % (AUTO) 100 %; WHITE BLOOD COUNT 7.2 10^3/uL (4.0-10.5)
[2019-03-15 13:36] LABS: APPEARANCE,URINE SLIGHTLY-CLOUDY; BILIRUBIN,URINE NEGATIVE (NEGATIVE); COLOR,URINE STRAW; GLUCOSE, URINE 50 mg/dL (NEGATIVE); KETONES,URINE NEGATIVE (NEGATIVE); LEUKOCYTE ESTERASE,URINE SMALL (NEGATIVE); NITRITE,URINE NEGATIVE (NEGATIVE); PROTEIN,URINE NEGATIVE (NEGATIVE); URINE SPECIFIC GRAVITY 1.011; UROBILINOGEN,URINE NEGATIVE mg/dL (<2.0)
[2019-03-15 13:37] LABS: ALBUMIN 4.9 g/dL (3.5-5.0); ALKALINE PHOSPHATASE 80 U/L (38-126); ANION GAP 14 (5-19); ASPARTATE AMINO TRANSFERASE 27 U/L (14-36); BILIRUBIN,DIRECT 0.2 mg/dL (0.0-0.4); BILIRUBIN,TOTAL 0.5 mg/dL (0.2-1.3); BLOOD UREA NITROGEN 13 mg/dL (7-20); CALCIUM 10.2 mg/dL (8.4-10.2); CARBON DIOXIDE 23 mmol/L (22-30); CHLORIDE 105 mmol/L (98-107); GLUCOSE 144 mg/dL (75-110); POTASSIUM 4.3 mmol/L (3.6-5.0); TOTAL PROTEIN 7.6 g/dL (6.3-8.2)
[2019-03-15 13:38] LABS: ADD MANUAL MICROSCOPIC YES
--- NOTE | 2019-03-15 14:25 | ER Document Report ---
ED General - General Chief Complaint: Dizziness Stated Complaint: DIZZINESS Time Seen by Provider: 03/15/19 12:24 Primary Care Provider: ELHAM PIERRE PA-C [NO LOCAL MD] - Follow up as needed Mode of Arrival: Ambulatory TRAVEL OUTSIDE OF THE [place] IN LAST 30 DAYS: No - Related Data Allergies/Adverse Reactions: codeine Allergy (Verified 03/15/19 12:22) latex Allergy (Verified 03/15/19 12:22) Home Medications: metformin. tylenol. claritin Past Medical History - General Information source: Patient - Social History Smoking Status: Never Smoker Chew tobacco use (# tins/day): No Frequency of alcohol use: None Drug Abuse: None Family History: Reviewed & Not Pertinent Patient has suicidal ideation: No Patient has homicidal ideation: No Neurological Medical History: Denies: Hx Cerebrovascular Accident, Hx Migraine, Hx Seizures Endocrine Medical History: Reports: Hx Diabetes Mellitus Type 2 Renal/ Medical History: Denies: Hx Peritoneal Dialysis Malignancy Medical History: Reports: Hx Breast Cancer - LUMPECTOMY, RADIATION Tx Past Surgical History: Reports: Hx Breast Surgery - lumpectomy R breast, Hx Hysterectomy, Hx Lumpectomy Physical Exam - Vital signs Vitals: Temp Pulse Resp BP Pulse Ox 98.1 F 102 H 18 184/85 H 100 03/15/19 12:08 03/15/19 12:08 03/15/19 12:08 03/15/19 12:08 03/15/19 12:08 Course - Vital Signs Vital signs: Temp Pulse Resp BP Pulse Ox 98.1 F 102 H 18 184/85 H 100 03/15/19 12:08 03/15/19 12:08 03/15/19 12:08 03/15/19 12:08 03/15/19 12:08 - Laboratory Result Diagrams: 03/15/19 13:00 03/15/19 13:00 Laboratory results interpreted by me: 03/15/19 03/15/19 12:39 13:00 Glucose 144 H Urine Glucose (UA) 50 H Ur Leukocyte Esterase SMALL H Discharge - Discharge Referrals: ELHAM PIERRE PA-C [NO LOCAL MD] - Follow up as needed
[2019-03-15] MEDS ORDERED: MECLIZINE HCL 25 MG TABLET PO ONE (15:16)
[2019-03-15 16:54] VITALS: BP 126/80
== END 2019-03-15 17:37 | disposition home or self-care (01) ==
LOC: ER 12:06
DX: H81.391 Other peripheral vertigo, right ear (principal); E11.9 Type 2 diabetes mellitus without complications; Z90.710 Acquired absence of both cervix and uterus; Z88.6 Allergy status to analgesic agent; Z91.040 Latex allergy status
CPT/HCPCS: 36415; 80053; 81001; 83690; 85025; 99284

== ENCOUNTER 2020-02-01 11:13 | Emergency (ER) | payer BC ==
--- NOTE | 2020-02-01 11:45 | ER Document Report ---
ED Medical Screen (RME) - General Chief Complaint: High Blood Pressure Stated Complaint: HIGH BLOOD PRESSURE Time Seen by Provider: 02/01/20 11:35 Primary Care Provider: TESS MOYA FNP-C [Primary Care Provider] - Follow up as needed Mode of Arrival: Ambulatory Information source: Patient Notes: 54-year-old female presented to ED for elevated blood pressure. She states at home is been in the 190s over the 1 months to 110s. She states she called the on-call doctor and they told her that the last several visits to the doctor's office her blood pressures been high. She states that she talked with primary care doctor and he is never put on blood pressure medicines. She states she has a history of high blood pressure diabetes type 2 breast cancer to the right side and she had a lumpectomy with XRT. She stated she had a hysterectomy in 2009 due to abnormal bleeding and pain. And she states she has had a tonsillectomy. She denies use of alcohol tobacco or drugs. She is alert oriented respirations regular nonlabored speaking in full sentences. Pulse 89 in triage I have greeted and performed a rapid initial assessment of this patient. A comp rehensive ED assessment and evaluation of the patient, analysis of test results and completion of medical decision making process will be conducted by an additional ED providers. TRAVEL OUTSIDE OF THE [place] IN LAST 30 DAYS: No - Related Data Allergies/Adverse Reactions: codeine Allergy (Verified 02/01/20 11:35) latex Allergy (Verified 02/01/20 11:35) Home Medications: Metformin, Glipizide Past Medical History - Social History Frequency of alcohol use: None Drug Abuse: None Neurological Medical History: Denies: Hx Cerebrovascular Accident, Hx Migraine, Hx Seizures Endocrine Medical History: Reports: Hx Diabetes Mellitus Type 2 Renal/ Medical History: Denies: Hx Peritoneal Dialysis Malignancy Medical History: Reports: Hx Breast Cancer - LUMPECTOMY, RADIATION Tx Past Surgical History: Reports: Hx Breast Surgery - lumpectomy R breast, Hx Hysterectomy, Hx Lumpectomy Physical Exam - Vital signs Vitals: Temp Pulse Resp BP Pulse Ox 98.1 F 110 H 16 151/83 H 99 02/01/20 11:27 02/01/20 11:27 02/01/20 11:27 02/01/20 11:27 02/01/20 11:27 Course - Vital Signs Vital signs: Temp Pulse Resp BP Pulse Ox 98.1 F 110 H 16 151/83 H 99 02/01/20 11:27 02/01/20 11:27 02/01/20 11:27 02/01/20 11:27 02/01/20 11:27 Doctor's Discharge - Discharge Referrals: TESS MOYA, SARAI-C [Primary Care Provider] - Follow up as needed
[2020-02-01 12:09] LABS: APPEARANCE,URINE CLEAR; BILIRUBIN,URINE NEGATIVE (NEGATIVE); COLOR,URINE YELLOW; GLUCOSE, URINE >=500 mg/dL (NEGATIVE); KETONES,URINE TRACE mg/dL (NEGATIVE); LEUKOCYTE ESTERASE,URINE NEGATIVE (NEGATIVE); NITRITE,URINE NEGATIVE (NEGATIVE); PROTEIN,URINE NEGATIVE (NEGATIVE); UROBILINOGEN,URINE NEGATIVE mg/dL (<2.0)
[2020-02-01 12:10] LABS: ABSOLUTE EOSINOPHILS # (AUTO) 0.1 10^3/uL (0.0-0.6); ABSOLUTE MONOCYTES (AUTO) 0.3 10^3/uL (0.1-1.4); ABSOLUTE NEUT (AUTO) 3.6 10^3/uL (1.7-8.2); BASOPHILS % (AUTO) 0.6 % (0-2); EOSINOPHILS % (AUTO) 1.8 % (0-6); HEMATOCRIT 39.1 % (36.0-47.0); HEMOGLOBIN 13.9 g/dL (12.0-15.5); LYMPHOCYTES % (AUTO) 20.1 % (13-45); MEAN CORPUSCULAR HEMOGLOBIN 31.1 pg (27.0-33.4); MEAN CORPUSCULAR HGB CONC 35.5 g/dL (32.0-36.0); MEAN CORPUSCULAR VOLUME 88 fl (80-97); MONOCYTES % (AUTO) 5.1 % (3-13); PLATELET COUNT 225 10^3/uL (150-450); RED BLOOD COUNT 4.46 10^6/uL (3.72-5.28); RED CELL DISTRIBUTION WIDTH 12.3 % (11.5-14.0); SEGMENTED NEUTROPHILS % (AUTO) 72.4 % (42-78); TOTAL CELLS COUNTED % (AUTO) 100 %; WHITE BLOOD COUNT 4.9 10^3/uL (4.0-10.5)
--- NOTE | 2020-02-01 12:26 | RADIOLOGY REPORT (SQ) ---
EXAM DESCRIPTION: CT HEAD WITHOUT IMAGES COMPLETED DATE/TIME: 02/01/2020 12:09 pm REASON FOR STUDY: High blood pressure with dizziness nausea and head COMPARISON: 2017 TECHNIQUE: Axial images acquired through the brain without intravenous contrast. Images reviewed wi th bone, brain and subdural windows. Additional sagittal and coronal reconstructions were generated. Images stored on PACS. All CT scanners at this facility use dose modulation, iterative reconstruction, and/or weight based d osing when appropriate to reduce radiation dose to as low as reasonably achievable (ALARA). [facility]: Dose Right [facility]: CareDose [facility]: Dose Right [facility]: Teradose 4D [facility]: Smart PingThings RADIATION DOSE: CT Rad equipment meets quality standard of care and radiation dose reduction techniq ues were employed. CTDIvol: 53.2 mGy. DLP: 911 mGy-cm. mGy. LIMITATIONS: None. FINDINGS: VENTRICLES: Normal size and contour. CEREBRUM: No masses. No hemorrhage. No midline shift. No evidence for acute infarction. Normal gra y/white matter differentiation. No areas of low density in the white matter. CEREBELLUM: No masses. No hemorrhage. No alteration of density. No evidence for acute infarction. EXTRAAXIAL SPACES: No fluid collections. No masses. ORBITS AND GLOBE: No intra- or extraconal masses. Normal contour of globe without masses. CALVARIUM: No fracture. PARANASAL SINUSES: No fluid or mucosal thickening. SOFT TISSUES: No mass or hematoma. OTHER: No other significant finding. IMPRESSION: NORMAL BRAIN CT WITHOUT CONTRAST. EVIDENCE OF ACUTE STROKE: NO. COMMENT: Quality ID # [id number]: Final reports with documentation of one or more dose reduction techniques (e.g., Automated exposure control, adjustment of the mA and/or kV according to patient size, use of iterative reconstruction technique) TECHNICAL DOCUMENTATION: JOB ID: [id number] 2010 [employer]- All Rights Reserved Reading location - IP/workstation name: [email or web address]
[2020-02-01 12:27] LABS: ALBUMIN 4.8 g/dL (3.5-5.0); ALKALINE PHOSPHATASE 64 U/L (38-126); ANION GAP 10 (5-19); ASPARTATE AMINO TRANSFERASE 52 U/L (14-36); BILIRUBIN,DIRECT 0.3 mg/dL (0.0-0.4); BILIRUBIN,TOTAL 0.7 mg/dL (0.2-1.3); BLOOD UREA NITROGEN 9 mg/dL (7-20); CALCIUM 9.6 mg/dL (8.4-10.2); CARBON DIOXIDE 29 mmol/L (22-30); CHLORIDE 99 mmol/L (98-107); GLUCOSE 344 mg/dL (75-110); POTASSIUM 4.4 mmol/L (3.6-5.0)
[2020-02-01 15:06] VITALS: BP 144/86
--- NOTE | 2020-02-01 15:21 | ER Document Report ---
HPI - HPI Time Seen by Provider: 02/01/20 11:35 Pain Level: 1 Notes: Patient is a 54-year-old female presenting to the emergency department concerns that her blood pressure has been elevated. Patient reports over the last few doctor visits with her primary care her blood pressure was in the 150 range. She states that her doctor did not tell her about this, she states that she went to get a blood pressure monitor and has been monitoring her blood pressure for the last week and her blood pressures have been in the 170s to 190 range systolic. She has a blood pressure monitor with her and shows me this on the recordings. She does report having a mild headache that has been present for several days. She states she usually takes Tylenol or ibuprofen for headaches but she has not taken any medications for this headache.. She states she has never been diagnosed with hypertension and is not taking any medications. - ROS Systems Reviewed and Negative: Yes All other systems reviewed and negative - see HPI Past Medical History - General Information source: Patient - Social History Smoking Status: Never Smoker Frequency of alcohol use: None Drug Abuse: None Family History: Reviewed & Not Pertinent Neurological Medical History: Denies: Hx Cerebrovascular Accident, Hx Migraine, Hx Seizures Endocrine Medical History: Reports: Hx Diabetes Mellitus Type 2 Renal/ Medical History: Denies: Hx Peritoneal Dialysis Malignancy Medical History: Reports: Hx Breast Cancer - LUMPECTOMY, RADIATION Tx Past Surgical History: Reports: Hx Breast Surgery - lumpectomy R breast, Hx Hysterectomy, Hx Lumpectomy Vertical Provider Document - CONSTITUTIONAL Notes: PHYSICAL EXAMINATION: GENERAL: Well-appearing, well-nourished and in no acute distress. HEAD: Atraumatic, normocephalic. EYES: Pupils equal round extraocular movements intact, conjunctiva are normal. ENT: Nares patent NECK: Normal range of motion LUNGS: No respiratory distress Musculoskeletal: Normal range of motion NEUROLOGICAL: Normal speech, normal gait. PSYCH: Normal mood, normal affect. SKIN: Warm, Dry, normal turgor, no rashes or lesions noted. - INFECTION CONTROL TRAVEL OUTSIDE OF THE [place] IN LAST 30 DAYS: No Course - Re-evaluation Re-evalutation: The patient was seen by the provider in triage who ordered labs and a CAT scan of her head. These were found to be unremarkable. Patient will be started on amlodipine 2.5 mg daily. I encouraged her to keep a log of her blood pressures and follow-up with her primary care provider, she is going to see them within the next 10 days for reevaluation. - Vital Signs Vital signs: Temp Pulse Resp BP Pulse Ox 98.3 F 86 18 144/86 H 100 02/01/20 15:06 02/01/20 15:06 02/01/20 15:06 02/01/20 15:06 02/01/20 15:06 - Laboratory Result Diagrams: 02/01/20 11:53 02/01/20 11:53 Laboratory results interpreted by me: 02/01/20 02/01/20 11:53 11:53 Glucose 344 H AST 52 H ALT 51 H Urine Glucose (UA) >=500 H Urine Ketones TRACE H Discharge - Discharge Clinical Impression: Blood pressure elevated without history of HTN Headache Qualifiers: Headache type: unspecified Headache chronicity pattern: unspecified pattern Intractability: not intractable Qualified Code(s): R51 - Headache Condition: Stable Disposition: HOME, SELF-CARE Additional Instructions: KeepPlease start taking the blood pressure medication as prescribed. Log of your blood pressures, when you wake up in the morning take your blood pressure medicine, 1 hour later record your blood pressure. Also take your blood pres sure before you go to sleep at night. Keep a log of this for the next 10 to 14 days so that you can bring it to your primary care provider so that they will know if they need to change or increase your dose of the blood pressure medication. Continue to take Tylenol or ibuprofen if you develop any headaches. Return to the emergency department with any new or worsening symptoms. Prescriptions: Amlodipine Besylate [Norvasc 2.5 mg Tablet] 2.5 mg PO DAILY #30 tablet Referrals: TESS MOYA FNP-C [Primary Care Provider] - Follow up as needed
[2020-02-01] MEDS ORDERED: AMLODIPINE BESYLATE 2.5 MG TABLET PO ONE (15:56)
[2020-02-01] MEDS ORDERED: IBUPROFEN 600 MG TABLET PO ONE (15:56)
== END 2020-02-01 16:10 | disposition home or self-care (01) ==
LOC: ER 11:13
DX: I10 Essential (primary) hypertension (principal); R51 Headache; E11.9 Type 2 diabetes mellitus without complications; Z85.3 Personal history of malignant neoplasm of breast; Z92.3 Personal history of irradiation
CPT/HCPCS: 36415; 70450; 80053; 81001; 85025; 99284

== ENCOUNTER 2020-02-04 10:09 | Emergency (ER) | payer BC ==
--- NOTE | 2020-02-04 10:38 | ER Document Report ---
ED Medical Screen (RME) - General Chief Complaint: Blood Pressure Problem Stated Complaint: LIGHTHEADED,BLOOD PRESSURE HIGH Primary Care Provider: TESS MOYA FNP-C [Primary Care Provider] - Follow up as needed Notes: 54-year-old female with past medical history of hypertension, vertigo, diabetes, breast cancer presenting today with concerns of elevated blood pressure and dizziness. States that she woke up this morning and was dizzy and shaky and did not feel like her normal self. She was diagnosed with hypertension on Sunday when she came into the emergency department and her blood pressure was elevated in the 190s/110's. She was started on amlodipine. She takes metformin and glipizide for her diabetes. She says her blood sugar was 108 today. She states that she feels dizzy going from sitting to standing. But she also feels dizzy intermittently throughout the day. She has not identified any specific triggers for her dizziness. Does not provide information on how long they last or alleviating factors. She had an appointment with a provider at [facility] this morning at 11 but states that she did not feel right so she came to the emergency department. She denies any chest pain, shortness of breath, headache. Physical: Lungs are clear to auscultation bilaterally, heart is regular rate rhythm, no murmurs, no rubs, no gallops I have greeted and performed a rapid initial assessment of this patient. A comprehesive ED assessment and evaluation of this patient, analysis of test results and completion of the medical decision-making process will be conducted by additional ED providers. TRAVEL OUTSIDE OF THE [place] IN LAST 30 DAYS: No - Related Data Allergies/Adverse Reactions: codeine Allergy (Verified 02/04/20 10:16) latex Allergy (Verified 02/04/20 10:16) Home Medications: metformin. glipizide. amilopidine. asa. cbd oil Past Medical History - Social History Chew tobacco use (# tins/day): No Frequency of alcohol use: None Drug Abuse: None Neurological Medical History: Denies: Hx Cerebrovascular Accident, Hx Migraine, Hx Seizures Endocrine Medical History: Reports: Hx Diabetes Mellitus Type 2 Renal/ Medical History: Denies: Hx Peritoneal Dialysis Malignancy Medical History: Reports: Hx Breast Cancer - LUMPECTOMY, RADIATION Tx Past Surgical History: Reports: Hx Breast Surgery - lumpectomy R breast, Hx Hysterectomy, Hx Lumpectomy Review of Systems - Review of Systems Constitutional: No symptoms reported EENT: No symptoms reported Cardiovascular: See HPI Respiratory: No symptoms reported Gastrointestinal: No symptoms reported Genitourinary: No symptoms reported Female Genitourinary: No symptoms reported Musculoskeletal: No symptoms reported Skin: No symptoms reported Physical Exam - Vital signs Vitals: Temp Pulse Resp BP Pulse Ox 98.1 F 112 H 20 154/84 H 99 02/04/20 10:13 02/04/20 10:13 02/04/20 10:13 02/04/20 10:13 02/04/20 10:13 Course - Vital Signs Vital signs: Temp Pulse Resp BP Pulse Ox 98.1 F 112 H 20 154/84 H 99 02/04/20 10:17 02/04/20 10:13 02/04/20 10:13 02/04/20 10:13 02/04/20 10:13 Doctor's Discharge - Discharge Referrals: TESS MOYA, RIVET SORTER-C [Primary Care Provider] - Follow up as needed
[2020-02-04 11:42] LABS: ABSOLUTE EOSINOPHILS # (AUTO) 0.2 10^3/uL (0.0-0.6); ABSOLUTE LYMPHOCYTES (AUTO) 1.7 10^3/uL (0.5-4.7); ABSOLUTE MONOCYTES (AUTO) 0.3 10^3/uL (0.1-1.4); ABSOLUTE NEUT (AUTO) 4.6 10^3/uL (1.7-8.2); BASOPHILS % (AUTO) 0.5 % (0-2); EOSINOPHILS % (AUTO) 3.4 % (0-6); HEMATOCRIT 42.2 % (36.0-47.0); HEMOGLOBIN 14.6 g/dL (12.0-15.5); LYMPHOCYTES % (AUTO) 24.7 % (13-45); MEAN CORPUSCULAR HEMOGLOBIN 30.4 pg (27.0-33.4); MEAN CORPUSCULAR HGB CONC 34.5 g/dL (32.0-36.0); MEAN CORPUSCULAR VOLUME 88 fl (80-97); MONOCYTES % (AUTO) 3.8 % (3-13); PLATELET COUNT 259 10^3/uL (150-450); RED CELL DISTRIBUTION WIDTH 12.8 % (11.5-14.0); SEGMENTED NEUTROPHILS % (AUTO) 67.6 % (42-78); TOTAL CELLS COUNTED % (AUTO) 100 %; WHITE BLOOD COUNT 6.7 10^3/uL (4.0-10.5)
[2020-02-04 12:00] LABS: ALBUMIN 5.2 g/dL (3.5-5.0); ALKALINE PHOSPHATASE 74 U/L (38-126); ANION GAP 11 (5-19); ASPARTATE AMINO TRANSFERASE 33 U/L (14-36); BILIRUBIN,DIRECT 0.2 mg/dL (0.0-0.4); BILIRUBIN,TOTAL 0.4 mg/dL (0.2-1.3); BLOOD UREA NITROGEN 9 mg/dL (7-20); CALCIUM 9.8 mg/dL (8.4-10.2); CARBON DIOXIDE 28 mmol/L (22-30); CHLORIDE 104 mmol/L (98-107); GLUCOSE 133 mg/dL (75-110); POTASSIUM 4.4 mmol/L (3.6-5.0); TOTAL PROTEIN 7.9 g/dL (6.3-8.2)
[2020-02-04 12:41] VITALS: BP 153/89
--- NOTE | 2020-02-04 12:53 | ER Document Report ---
Entered by EUN DRAKE SCRIBE 02/04/20 1156 Acting as scribe for:SOLOMON RUIZ MD ED Blood Pressure Problem - General Chief Complaint: Blood Pressure Problem Stated Complaint: LIGHTHEADED,BLOOD PRESSURE HIGH Time Seen by Provider: 02/04/20 11:48 Primary Care Provider: TESS MOYA FNP-C [Primary Care Provider] - Follow up as needed Mode of Arrival: Ambulatory Information source: Patient Notes: This 54 year old female patient with a history significant for hypertension, type 2 diabetes mellitus, and vertigo presents to the ED today with complaints of elevated blood pressure readings at home this morning. Patient also reports intermittent episodes of dizziness. Patient was seen here on 01/31 with the same complaint and was started on Amlodipine. She mentions that she had an appointment with her PCP at [facility] this morning, but decided to come to the ED for evaluation instead. TRAVEL OUTSIDE OF THE [place] IN LAST 30 DAYS: No - Related Data Allergies/Adverse Reactions: codeine Allergy (Verified 02/04/20 10:16) latex Allergy (Verified 02/04/20 10:16) Home Medications: metformin. glipizide. amilopidine. asa. cbd oil Past Medical History - General Information source: Patient, [facility] Records - Social History Smoking Status: Never Smoker Cigarette use (# per day): No Chew tobacco use (# tins/day): No Smoking Education Provided: No Frequency of alcohol use: None Drug Abuse: None Family History: Reviewed & Not Pertinent Patient has homicidal ideation: No - Past Medical History Cardiac Medical History: Reports: Hx Hypertension Endocrine Medical History: Reports: Hx Diabetes Mellitus Type 2 Malignancy Medical History: Reports: Hx Breast Cancer - LUMPECTOMY, RADIATION Tx Past Surgical History: Reports: Hx Hysterectomy, Hx Lumpectomy - Right breast, Hx Tonsillectomy - 1996 Review of Systems - Review of Systems Constitutional: See HPI, Other - Elevated blood pressure EENT: No symptoms reported Cardiovascular: See HPI, Dizziness Respiratory: No symptoms reported Gastrointestinal: No symptoms reported Genitourinary: No symptoms reported Female Genitourinary: No symptoms reported Musculoskeletal: No symptoms reported Skin: No symptoms reported Hematologic/Lymphatic: No symptoms reported Neurological/Psychological: No symptoms reported -: Yes All other systems reviewed and negative Physical Exam - Vital signs Vitals: Temp Pulse Resp BP Pulse Ox 98.1 F 112 H 20 154/84 H 99 02/04/20 10:13 02/04/20 10:13 02/04/20 10:13 02/04/20 10:13 02/04/20 10:13 Interpretation: Normal - General General appearance: Appears well, Alert In distress: None - HEENT Head: Normocephalic, Atraumatic Eyes: Normal Pupils: PERRL - Respiratory Respiratory status: No respiratory distress Chest status: Nontender Breath sounds: Normal Chest palpation: Normal - Cardiovascular Rhythm: Regular Heart sounds: Normal auscultation Murmur: No Friction rub: No Gallop: None auscultated - Abdominal Inspection: Normal Distension: No distension Bowel sounds: Normal Tenderness: Nontender - Abdomen soft Organomegaly: No organomegaly - Back Back: Normal, Nontender - Extremities General upper extremity: Normal inspection General lower extremity: Normal inspection - Neurological Neuro grossly intact: Yes Orientation: AAOx4 Hinton Coma Scale Eye Opening: Spontaneous Fifi Coma Scale Verbal: Oriented [place] Coma Scale Motor: Obeys Commands Fifi Coma Scale Total: 15 - Psychological Associated symptoms: Normal affect, Normal mood - Skin Skin Temperature: Warm Skin Moisture: Dry Skin Color: Normal Course - Vital Signs Vital signs: Temp Pulse Resp BP Pulse Ox 98.1 F 89 18 153/89 H 97 02/04/20 10:17 02/04/20 11:56 02/04/20 12:01 02/04/20 12:00 02/04/20 12:01 - Laboratory Result Diagrams: 02/04/20 11:28 02/04/20 11:28 Laboratory results interpreted by me: 02/04/20 11:28 Glucose 133 H ALT 46 H Albumin 5.2 H - EKG Interpretation by [facility] EKG shows normal: Sinus rhythm, Crescent, Intervals, QRS Complexes, ST-T Waves Rate: Normal - 93 Rhythm: NSR Discharge - Discharge Clinical Impression: High blood pressure associated with diabetes Condition: Stable Disposition: HOME, SELF-CARE Additional Instructions: Reviewing your medical records going back to 2017, you always have elevated blood pressure when you come to the emergency room. It appears that you are borderline hypertension you have had now for a few years is becoming a continuous issue and needs to be treated. Amlodipine restarted 3 days ago did not adequately lower your blood pressure, and with diabetes, lisinopril would be a better choice for initial blood pressure management. Take the lisinopril as prescribed starting today. Check your blood pressure at home at least in the morning and at bedtime. Continue the amlodipine only if your blood pressure remains elevated despite the lisinopril. Continue taking your meclizine for the dizziness episodes. Follow-up with your primary care provider in a few days to review your blood pressure readings and determine if you need the medication dosing adjusted. RETURN TO THE EMERGENCY ROOM IF ANY NEW OR WORSENING SYMPTOMS. Prescriptions: Lisinopril [Prinivil 10 mg Tablet] 10 mg PO DAILY #30 tablet Referrals: TESS MOYA FNP-C [Primary Care Provider] - Follow up as needed I personally performed the services described in the documentation, reviewed and edited the documentation which was dictated to the scribe in my presence, and it accurately records my words and actions.
--- NOTE | 2020-02-04 14:43 | EKG REPORT ---
SEVERITY:- NORMAL ECG - SINUS RHYTHM : Confirmed by: Payal Etienne MD 04-Feb-2020 14:42:30
== END 2020-02-04 13:09 | disposition home or self-care (01) ==
LOC: ER 10:09
DX: E11.69 Type 2 diabetes mellitus with other specified complication (principal); I15.2 Hypertension secondary to endocrine disorders; E11.9 Type 2 diabetes mellitus without complications; Z79.84 Long term (current) use of oral hypoglycemic drugs; Z79.899 Other long term (current) drug therapy; Z79.82 Long term (current) use of aspirin; Z85.3 Personal history of malignant neoplasm of breast; Z92.3 Personal history of irradiation; Z88.6 Allergy status to analgesic agent; Z88.5 Allergy status to narcotic agent; Z91.040 Latex allergy status
CPT/HCPCS: 36415; 80053; 85025; 93005; 93010; 99284